=== PATIENT | female | born 1980 | race Caucasian/White ===

== ENCOUNTER 2023-07-04 06:45 | Day surgery (SDC) | payer OTHER, SELFPAY ==
[2023-07-04] VITALS (18 sets, daily range): BP systolic 98–119; BP diastolic 56–86; BMI 34.9; BMI 35.9
[2023-07-04 07:48] LABS: Hemoglobin 12.9 g/dL (12.0-16.0); Mean Corp Hgb Conc. 33.1 g/dL (33.0-37.0); Mean Corpuscular Volume 84.6 fL (81.0-99.0); Mean Platelet Volume 8.7 fL (7.4-10.4); Platelet Count 342 10^3/uL (130-400); Red Blood Cell Count 4.61 10^6/uL (4.20-5.40); Red Cell Dist. Width 13.3 % (11.5-14.5); White Blood Cell Count 9.3 10^3/uL (4.8-10.8)
[2023-07-04] MEDS: NORMOSOL-R 1000 IV ×2 (07:59→15:55)
[2023-07-04] MEDS: Pyridium 200 MG PO (08:00)
[2023-07-04 08:09] LABS: Blood Urea Nitrogen 18 mg/dl (7-17); Calcium 9.5 mg/dl (8.4-10.2); Carbon Dioxide 23 mmol/L (22-30); Chloride 107 mmol/L (98-107); Estimated Creatinine Clearance 125 ml/min; Glucose 89 mg/dl (70-99); Potassium 4.1 mmol/L (3.5-5.1); Sodium 136 mmol/L (135-145); eGFR > 60.00
[2023-07-04] MEDS: DILAUDID 0.5 MG IV ×3 (11:29→19:53)
[2023-07-04 12:05] LABS: Hematocrit 36.8 % (37.0-47.0); Hemoglobin 12.4 g/dL (12.0-16.0)
[2023-07-04] MEDS: TORADOL 15 MG IV ×3 (12:21→23:05)
[2023-07-04] MEDS: ZOFRAN 4 MG IV (12:52)
[2023-07-04] MEDS: NEURONTIN 100 MG PO ×2 (16:43→22:21)
[2023-07-04] MEDS: LOVENOX 40 MG SC (17:55)
--- NOTE | 2023-07-04 18:22 | PTCARENOTE ---
received patient from PACU 1745. Patgient AAOx3. med surg. Normosol 100 ml/hr in Left ac, superpubic incision with ice pack applied. Salazar cath in place. Regular diet placed for patient to order finner. 09/18 pain in superpubic incision scheduled
pain medication given. Vaginal packing to be removed 0500 07/04.
[2023-07-04] MEDS: COLACE 100 MG PO (19:54)
[2023-07-05] MEDS: DILAUDID 0.5 MG IV ×4 (01:05→22:02)
[2023-07-05] MEDS: NORMOSOL-R 1000 IV ×3 (01:10→16:35)
[2023-07-05 03:12] VITALS: BP 102/61
[2023-07-05 05:00] LABS: Hematocrit 34.2 % (37.0-47.0); Hemoglobin 11.4 g/dL (12.0-16.0); Mean Corp Hgb Conc. 33.3 g/dL (33.0-37.0); Mean Corpuscular Hgb 28.3 pg (27.0-31.0); Mean Corpuscular Volume 84.9 fL (81.0-99.0); Platelet Count 331 10^3/uL (130-400); Red Blood Cell Count 4.03 10^6/uL (4.20-5.40); Red Cell Dist. Width 13.6 % (11.5-14.5); White Blood Cell Count 17.4 10^3/uL (4.8-10.8)
[2023-07-05] MEDS: ZYRTEC 10 MG PO (05:01)
[2023-07-05] MEDS: TORADOL 15 MG IV (05:01)
[2023-07-05 05:50] LABS: Blood Urea Nitrogen 14 mg/dl (7-17); Carbon Dioxide 21 mmol/L (22-30); Chloride 107 mmol/L (98-107); Estimated Creatinine Clearance > 125 ml/min; Potassium 4.1 mmol/L (3.5-5.1); Sodium 133 mmol/L (135-145)
[2023-07-05 07:00] VITALS: BP 103/59
--- NOTE | 2023-07-05 07:15 | W.PN.GYN ---
Today's Communication / Plan
-
1. transition to PO pain control
2. ambulation
Physician Note
-
Assessment and Plan:
43 yo woman pod 1 s/p autologous fascial sling and cystoscopy for recurrent stress incontinence: patient is meeting postoperative milestones and doing well, continues to have postoperative pain
1. Postoperative care:
-Hep lock IV
-Regular Diet
-DVT ppx: Lovenox, SCDs, ambulation
-Recommend ambulation today and up in recliner
-Vaginal packing removed on rounds this morning
-UOP: adequate
-CBC: WNL
-BMP: WNL
-Salazar: to remain in place for at least 3 days postop
-Pain control: recommend transition to PO pain medications: discontinue Toradol after 24 hours and start ibuprofen
2. Dispo
-plan for d/c home when her pain is better controlled
Subjective
patient continues to have lower pelvic and vaginal pain s/p surgery, minimal spotting, tolerating regular diet, denies fevers/chills, nausea/vomiting, chest pain, sob, leg pain
Objective:
Intake and Output
07/03/23 07/04/23 07/05/23 07/06/23
06:59 06:59 06:59 06:59
Intake Total 1140 / 1140
Output Total 2450 / 2450
Balance -1310 / -1310
Intake:
Oral fluids 540 / 540
IV fluids (Total) 600 / 600
Normosal 600 / 600
Output:
Urine, Salazar 2450 / 2450
Vital Signs
Temp Pulse Resp BP Pulse Ox
97.8 F 60 18 102/61 97
07/05/23 03:12 07/05/23 03:12 07/05/23 03:12 07/05/23 03:12 07/05/23 03:12
Lab Results
07/05/23 04:39
07/05/23 04:39
Exam:
Abdomen: soft, nontender, non-distneded
Incision: clean, dry, intact
: minimal spotting on pad
[2023-07-05] MEDS: COLACE 100 MG PO ×2 (08:59→19:59)
[2023-07-05] MEDS: NEURONTIN 100 MG PO ×3 (08:59→21:46)
[2023-07-05] MEDS: ProAIR HFA INHALER 2 PUFF INH ×2 (09:04→17:53)
--- NOTE | 2023-07-05 12:51 | CM ---
Reviewed the chart notes and spoke with the patient at the bedside. The patient resides with her spouse in a two story home with two steps to enter. The patient reports on DME is a nebulizer. The patient reports no VN or SNF in past. The patient
confirmed [facility]. CM continues to be available to patient/family and is monitoring medical plan for needs at discharge.
Plan: Discharge to home when medically stable. No needs anticipated.
[2023-07-05 15:00] VITALS: BP 125/67
[2023-07-05] MEDS: TYLENOL 650 MG PO (16:34)
[2023-07-05] MEDS: LOVENOX 40 MG SC (17:54)
[2023-07-05] MEDS: SYMBICORT 160/4.5 MCG INHALER 1 PUFF INH (17:55)
[2023-07-05] MEDS: ROXICODONE 5 MG PO (19:59)
--- NOTE | 2023-07-05 22:45 | PTCARENOTE ---
Patient tolerating p.o medications fine, requesting IV pain med instead of p.o stating oxycodone has side effects 'gives her insomnia'. Patient educated on the purpose of starting taking medications by mouth, verbalizes understanding however
requested IV dilaudid less than 2hr after viry 5mg was administered.
[2023-07-05 23:07] VITALS: BP 106/64
--- NOTE | 2023-07-06 04:07 | DOWNTIME ---
There was a [employer] Downtime on 07/06/2023 from 0100 to 07/06/2023 at 0322. Downtime documentation of patient's care, including medication administrations, has been reconciled in the electronic record per guidelines. Refer to the
patient's paper chart under the miscellaneous tab to see printed paper medication records and downtime forms.
[2023-07-06] MEDS: DILAUDID 0.5 MG IV (04:22)
[2023-07-06 04:54] LABS: Hematocrit 33.1 % (37.0-47.0); Mean Corp Hgb Conc. 33.2 g/dL (33.0-37.0); Mean Corpuscular Hgb 28.5 pg (27.0-31.0); Mean Corpuscular Volume 85.8 fL (81.0-99.0); Mean Platelet Volume 9.3 fL (7.4-10.4); Platelet Count 297 10^3/uL (130-400); Red Blood Cell Count 3.86 10^6/uL (4.20-5.40); White Blood Cell Count 11.1 10^3/uL (4.8-10.8)
[2023-07-06] MEDS: ZYRTEC 10 MG PO (05:29)
[2023-07-06 05:41] LABS: Blood Urea Nitrogen 14 mg/dl (7-17); Calcium 8.6 mg/dl (8.4-10.2); Carbon Dioxide 22 mmol/L (22-30); Chloride 107 mmol/L (98-107); Estimated Creatinine Clearance > 125 ml/min; Glucose 99 mg/dl (70-99); Potassium 4.1 mmol/L (3.5-5.1); Sodium 137 mmol/L (135-145); eGFR > 60.00
--- NOTE | 2023-07-06 06:40 | W.PN.GYN ---
Today's Communication / Plan
-
1. d/c home today
2. patient to schedule Salazar removal in Urology office tomorrow
Physician Note
-
Assessment and Plan
43 yo woman pod 2 s/p autologous fascial sling and cystoscopy for recurrent stress incontinence: patient is meeting postoperative milestones and doing well, postoperative pain improving appropriatley
1. Postoperative care:
-Hep lock IV
-Regular Diet
-DVT ppx: Lovenox, SCDs, ambulation
-Patient ambulating in room; able to sit in recliner
-Vaginal packing removed on POD 1
-UOP: adequate
-CBC: WNL-->stable POD2
-BMP: WNL-->stable POD2
-Salazar: patient to schedule catheter removal on POD 3 in the Urology office
-Pain control: PO pain medications with Tylenol, ibuprofen and oxycodone
2. Dispo
-plan for d/c home today
Subjective
patient's postoperative pain improving, pain localized to incision sites, minimal spotting, tolerating regular diet, denies fevers/chills, nausea/vomiting, chest pain, sob, leg pain
Objective:
Intake and Output
07/03/23 07/04/23 07/05/23 07/06/23
06:59 06:59 06:59 06:59
Intake Total 1140 / 1140 1330 / 1330
Output Total 2450 / 2450 3600 / 3600
Balance -1310 / -1310 -2270 / -2270
Intake:
Oral fluids 540 / 540 580 / 580
IV fluids (Total) 600 / 600 750 / 750
Normosal 600 / 600
Output:
Urine, Salazar 2450 / 2450 3600 / 3600
Vital Signs
Temp Pulse Resp BP Pulse Ox
97.9 F 60 16 106/64 97
07/05/23 23:07 07/05/23 23:07 07/05/23 23:07 07/05/23 23:07 07/05/23 23:07
Lab Results
07/06/23 04:30
07/06/23 04:30
Exam:
-Abdomen: soft, nontender, nondistended
-Incision: clean, dry, intact
-: minimal spotting
[2023-07-06 08:28] VITALS: BP 104/71
[2023-07-06] MEDS: COLACE 100 MG PO (08:32)
[2023-07-06] MEDS: NEURONTIN 100 MG PO (08:33)
[2023-07-06] MEDS: DILAUDID 2 MG PO ×2 (09:38→13:01)
--- NOTE | 2023-07-06 13:08 | CM ---
Plan: discharge to home without services; will transport home
--- NOTE | 2023-07-06 14:00 | PTCARENOTE ---
Patient tolerated oral Dilaudid, reports pain is manageable. Discharge instructions reviewed with patient, and signed. Patient left with brito catheter, per urology (to remove in office post discharge). at bedside, very helpful to patient.
== END 2023-07-06 15:35 | disposition home or self-care (01) ==
LOC: SDS 06:45
PROVIDERS: ATTENDING PHYSICIAN Obstetrics & Gynecology
DX: N39.3 Stress incontinence (female) (male) (principal)
CPT/HCPCS: 57288; 15769; C1771; 80048; 80051; 82565; 84520; 85014; 85018; 85027; 86850; 86900; 86901; 93005; 94640; J1580